=== PATIENT | male | born 1955 | race Caucasian/White ===

== ENCOUNTER 2018-04-12 21:30 | Emergency (ER) | payer OTHER ==
[2018-04-12 21:36] VITALS: BP 185/82; PULSE 98; RESP 18; TEMP 98
[2018-04-12] MEDS ORDERED: KETOROLAC 30 MG/ML 1 ML VIAL IM STA (22:23)
--- NOTE | 2018-04-12 22:31 | ED ---
Back Pain HPI - General Source: patient, RN notes reviewed Limitations: no limitations <Joanne Siddiqui - Last Filed: 04/12/18 22:55> <Swathi Sanford - Last Filed: 04/13/18 01:24> - General Chief Complaint: Back Pain/Injury Stated Complaint: back pain Time Seen by Provider: 04/12/18 21:50 - History of Present Illness Initial Comments: This is a 63-year-old male who presents to the emergency department with chief complaint of low back pain. Patient reports a history of herniated lumbar disc. He states that yesterday he was carrying a laundry basket and walking on the stairs. He states that he slipped on one of the steps but was able to catch himself without completely falling. Denies any direct trauma to the back. Patient states that since that time he has had right-sided back pain with radiation down the right leg. Patient is concerned for worsening of the herniated disc. He denies saddle paresthesias or loss of bladder or bowel function. Denies fevers or chills, chest pain or shortness breath, abdominal pain, nausea or vomiting. Denies any other injuries or trauma. (Joanne Siddiqui) - Related Data Home Medications Medication Instructions Recorded Confirmed Naproxen Sodium [Aleve] 220 mg PO DAILY PRN 12/20/14 04/12/18 Diclofenac Sodium [Voltaren Gel] 1 applic TOPICAL ONCE PRN 04/12/18 04/12/18 Previous Rx's Medication Instructions Recorded Hydrocodone/Acetaminophen [[place] 1 tab PO Q6HR PRN #15 tab 01/11/16 5-325] Ibuprofen 600 mg PO Q6HR #15 tablet 04/12/18 Allergies Allergy/AdvReac Type Severity Reaction Status Date / Time aspirin Allergy Itching Verified 04/12/18 21:55 Review of Systems ROS Other: All systems not noted in ROS Statement are negative. <Joanne Siddiqui - Last Filed: 04/12/18 22:55> ROS Other: All systems not noted in ROS Statement are negative. <Swathi Sanford - Last Filed: 04/13/18 01:24> ROS Statement: Those systems with pertinent positive or pertinent negative responses have been documented in the HPI. Past Medical History Past Medical History: Cancer Additional Past Medical History / Comment(s): back injury with nerve damage, bone cancer History of Any Multi-Drug Resistant Organisms: None Reported Past Surgical History: Hernia Repair, Tonsillectomy Additional Past Surgical History / Comment(s): amputation to finger Past Psychological History: No Psychological Hx Reported Smoking Status: Current every day smoker Past Alcohol Use History: None Reported Past Drug Use History: None Reported <Joanne Siddiqui - Last Filed: 04/12/18 22:55> General Exam Limitations: no limitations Back exam: Present: normal inspection, full ROM, paraspinal tenderness (Right lumbar). Absent: vertebral tenderness <Joanne Siddiqui - Last Filed: 04/12/18 22:55> <Swathi Sanford - Last Filed: 04/13/18 01:24> - General Exam Comments Initial Comments: General: Awake and alert, well-developed; in no apparent distress. HEENT: Head atraumatic, normocephalic. Pupils are equal, round and reactive to light. Extraocular movements intact. Oropharynx moist without erythema or exudate. Neck: Supple. Normal ROM. Cardiovascular: Regular rate and rhythm. No murmurs, rubs or gallops. Chest symmetrical. Pedal pulses are 2+ equal and palpable bilaterally. Respiratory: Lungs clear to auscultation bilaterally. No wheezes, rales or rhonchi. Normal respiratory effort with no use of accessory muscles. Musculoskeletal: Normal ROM, no tenderness bilateral upper and lower extremities. Ambulating normally. Skin: [place], warm and dry without rashes or lesions. Neurological: Alert and oriented x3. CN II-XII grossly intact. Speech is fluent and answers are appropriate. No focal neuro deficits. Psychiatric: Normal mood and affect. No overt signs of depression or anxiety noted. (Joanne Siddiqui) Vital Signs 04/12/18 21:34 Temperature 98 F Pulse Rate 98 Respiratory 18 Rate Blood Pressure 185/82 O2 Sat by Pulse 100 Oximetry Medical Decision Making <Joanne Siddiqui - Last Filed: 04/12/18 22:55> <Swathi Sanford - Last Filed: 04/13/18 01:24> - Medical Decision Making This is a 63-year-old male who presents to the emergency department with chief complaint of acute low back pain. Patient reports slipping on a set of stairs but was able to catch his fall. No direct trauma to the back. Patient reports pain to the right side of his back with radiation down the right leg. He states he has had similar symptoms in the past with a herniated disc. He is concern for worsening of this. Patient was given Toradol and will be started on a short course of anti-inflammatories. Recommended following up with his back doctor and/or primary care provider for further evaluation with an MRI. Lumbar x-ray is not warranted at this time as patient did not have any direct trauma to the back. Vital signs have been stable and he is in no acute distress. He will be discharged home at this time. He is in agreement voices understanding. All questions were answered. (Joanne Siddiqui) I was available for consultation in the emergency department. The history and physical exam were done by the midlevel provider. I was consulted for this patient's care. I reviewed the case with the midlevel provider and based on their presentation of the patient, I agree with the assessment, medical decision making and plan of care as documented. (Swathi Sanford) Disposition Is patient prescribed a controlled substance at d/c from ED?: No Time of Disposition: 22:31 <Joanne Siddiqui - Last Filed: 04/12/18 22:55> <Swathi Sanford - Last Filed: 04/13/18 01:24> Clinical Impression: Lumbar radiculopathy Disposition: HOME SELF-CARE Instructions: Acute Low Back Pain (ED), Lumbar Radiculopathy (ED) Additional Instructions: Please take medications as prescribed. Please follow up with primary care provider within 1-2 days. Return to emergency department if symptoms should worsen or any concerns arise. Prescriptions: Ibuprofen 600 mg PO Q6HR #15 tablet Referrals: Fabiola Greenwood MD [Primary Care Provider] - 1-2 days
== END 2018-04-12 23:16 | disposition home or self-care (01) ==
LOC: EC 21:30
DX: M54.16 Radiculopathy, lumbar region (principal); F17.200 Nicotine dependence, unspecified, uncomplicated; Z85.830 Personal history of malignant neoplasm of bone; Z98.890 Other specified postprocedural states; Z89.029 Acquired absence of unspecified finger(s); Z88.6 Allergy status to analgesic agent; W18.43XA Slipping, tripping and stumbling without falling due to stepping from one level to another, initial encounter; Y93.01 Activity, walking, marching and hiking
CPT/HCPCS: 99283; 96372; J1885

== ENCOUNTER 2018-07-04 16:52 | Emergency (ER) | payer OTHER ==
[2018-07-04 17:01] VITALS: RESP 16
--- NOTE | 2018-07-04 17:55 | XR ---
EXAMINATION TYPE: XR lumbar spine 2 or 3V DATE OF EXAM: 07/04/2018 COMPARISON: 12/20/2014 HISTORY: Back pain TECHNIQUE: 3 views FINDINGS: Lumbar vertebra have normal alignment. There is degenerative disc space narrowing at L4-5. There is spurring of the endplates throughout the lumbar spine. Abdominal aorta is atheromatous. Sacr oiliac joints are intact. IMPRESSION: Multilevel spondylosis. This is more at L4-5. No fracture seen. There is mild progression of spondylosis compared to old exam.
--- NOTE | 2018-07-04 17:56 | XR ---
EXAMINATION TYPE: XR knee complete LT DATE OF EXAM: 07/04/2018 COMPARISON: NONE HISTORY: Knee pain TECHNIQUE: 3 views FINDINGS: There is 8mm degenerative cyst in the medial femoral condyle. I see no fracture nor disloca tion. There is no sign of a joint effusion. Joint spaces are fairly normal. IMPRESSION: Small degenerative cyst in the medial femoral condyle. No significant joint space narrowi ng. No fracture.
--- NOTE | 2018-07-04 18:36 | US ---
EXAMINATION TYPE: US venous doppler duplex LE LT DATE OF EXAM: 07/04/2018 6:29 PM COMPARISON: NONE CLINICAL HISTORY: Pain. Pain SIDE PERFORMED: Left TECHNIQUE: The lower extremity deep venous system is examined utilizing real time linear array sonog brii with graded compression, doppler sonography and color-flow sonography. VESSELS IMAGED: External Iliac Vein (EIV) Common Femoral Vein Deep Femoral Vein Greater Saphenous Vein * Femoral Vein Popliteal Vein Small Saphenous Vein * Proximal Calf Veins (* superficial vessels) Left Leg: Negative for DVT No evidence DVT left leg. IMPRESSION: Normal left leg duplex venous sonogram.
--- NOTE | 2018-07-04 18:59 | ED ---
General Adult HPI - General Chief complaint: Extremity Injury, Lower Stated complaint: lt leg pain Time Seen by Provider: 07/04/18 17:14 Source: patient, RN notes reviewed Mode of arrival: ambulatory Limitations: no limitations - History of Present Illness Initial comments: Patient is a 63-year-old male presented to the emergency room today with a chief complaint of left leg pain over the last 4 days. Patient does admit that 4 days ago was going down some stairs when he slipped and did not fall but had to catch himself. Patient states that since that time he's been experiencing some discomfort in the left leg. He states that when he is at rest laying down he feels okay but when he gets up and starts to walk he feels tightness and squeezing sensation in the left leg. He states he feels in the left popliteal area along with some pain radiating down from the hip to the knee area. Patient admits to previous back injury when he had pain radiate down the right leg. States he does not have pain going down at the left leg in the past. Patient denies any bowel or bladder incontinence retention. Denies any saddle anesthesia. Denies any other complaints. Patient denies any recent fever, chills, shortness of breath, chest pain, back pain, abdominal pain, nausea or vomiting, numbness or tingling, dysuria or hematuria, constipation or diarrhea, headaches or visual changes, or any other complaints. - Related Data Home Medications Medication Instructions Recorded Confirmed Naproxen Sodium [Aleve] 220 mg PO DAILY PRN 12/20/14 04/12/18 Diclofenac Sodium [Voltaren Gel] 1 applic TOPICAL ONCE PRN 04/12/18 04/12/18 Previous Rx's Medication Instructions Recorded Hydrocodone/Acetaminophen [[place] 1 tab PO Q6HR PRN #15 tab 01/11/16 5-325] Ibuprofen 600 mg PO Q6HR #15 tablet 04/12/18 Cyclobenzaprine [Flexeril] 10 mg PO TID #20 tab 07/04/18 Dexamethasone 0.75 mg PO DIRECTED #12 tablet 07/04/18 Naproxen [Naprosyn] 500 mg PO BID #20 tablet 07/04/18 Allergies Allergy/AdvReac Type Severity Reaction Status Date / Time aspirin Allergy Itching Verified 07/04/18 17:01 Review of Systems ROS Statement: Those systems with pertinent positive or pertinent negative responses have been documented in the HPI. ROS Other: All systems not noted in ROS Statement are negative. Past Medical History Past Medical History: Cancer Additional Past Medical History / Comment(s): back injury with nerve damage, bone cancer History of Any Multi-Drug Resistant Organisms: None Reported Past Surgical History: Hernia Repair, Tonsillectomy Additional Past Surgical History / Comment(s): amputation to finger Past Psychological History: No Psychological Hx Reported Smoking Status: Current every day smoker Past Alcohol Use History: None Reported Past Drug Use History: None Reported General Exam - General Exam Comments Initial Comments: General: The patient is awake and alert, in no distress, and does not appear acutely ill. Neck: The neck is supple, there is no tenderness or JVD. Musculoskeletal: Normal ROM. Normal. Left leg no obvious deformity. Patient shows good range of motion of left ankle, knee, hip. Patient does have some tenderness in the lower lumbar at L3 to L5. No step-off no deformity.. Acutely tender on the left side of the lower lumbar. Mild tenderness to posterior aspect of the left knee. No bony tenderness to left hip, knee, ankle. Strength 5/5. Sensation intact. Pulses equal bilaterally 2+. Neurological: A&O x 3. CN II-XII intact, There are no obvious motor or sensory deficits. Coordination appears grossly intact. Speech is normal. Skin: Skin is warm and dry and no rashes or lesions are noted. Psychiatric: Cooperative, appropriate mood & affect, normal judgment. Limitations: no limitations Course Vital Signs 07/04/18 16:58 Temperature 97.8 F Pulse Rate 93 Respiratory 16 Rate Blood Pressure 150/83 O2 Sat by Pulse 100 Oximetry Medical Decision Making - Medical Decision Making X-rays of the left knee are negative for any acute abnormality. There is arthritic changes to the lumbar spine but no acute abnormality. Doppler ultrasound performed and is negative for any DVT. Results were discussed with the patient. This felt that his pain is radicular pain coming from his lower lumbar. Patient will be treated with anti-inflammatories, steroids, muscle relaxer. He is advised following up with orthopedics for further evaluation. Patient advised return if any symptoms increase or worsen. Disposition Clinical Impression: Acute lumbar radiculopathy Disposition: HOME SELF-CARE Condition: Good Instructions: Lumbar Radiculopathy (ED) Additional Instructions: Please use medication as discussed. Be aware that muscle relaxant may make you drowsy. Please follow-up with orthopedic/family doctor in the next 2 days of symptoms have not improved. Please return to emergency room if the symptoms increase or worsen or for any other concerns. Prescriptions: Cyclobenzaprine [Flexeril] 10 mg PO TID #20 tab Dexamethasone 0.75 mg PO DIRECTED #12 tablet Naproxen [Naprosyn] 500 mg PO BID #20 tablet Is patient prescribed a controlled substance at d/c from ED?: No Referrals: Fabiola Greenwood MD [Primary Care Provider] - 1-2 days Maricarmen Gottlieb DO [Doctor of Osteopathic Medicine] - 1-2 days Time of Disposition: 19:04
[2018-07-04] MEDS ORDERED: KETOROLAC 60 MG/2 ML VIAL IM STA (19:00)
[2018-07-04 19:14] VITALS: BP 129/57; PULSE 79; TEMP 98
== END 2018-07-04 19:17 | disposition home or self-care (01) ==
LOC: EC 16:52
DX: M54.16 Radiculopathy, lumbar region (principal); F17.200 Nicotine dependence, unspecified, uncomplicated; Z85.830 Personal history of malignant neoplasm of bone
CPT/HCPCS: 72100; 73562; 93971; 99284; 96372; J1885

== ENCOUNTER → 2018-08-04 | Outpatient (CLI) | payer OTHER ==
--- NOTE | 2018-08-06 00:21 | MR ---
EXAMINATION TYPE: MR lumbar spine wo con DATE OF EXAM: 08/04/2018 COMPARISON: None HISTORY: Disc degeneration / Herniated disc,/ left leg pain TECHNIQUE: Multiplanar, multisequence images of the lumbar spine were acquired. Lumbar vertebra have normal alignment. There is mild narrowing of the lumbar disc spaces with sparing of L5-S1 disc. There is no compression fracture. I see no focal bone destruction. There is mild mult ilevel lumbar hypertrophic facet arthropathy. There is no paraspinal mass. The visualized sacroiliac joints appear intact. There is mild lateral recess stenosis at L4-5 on the right side with facet arth ropathy. I see no significant bony spinal stenosis. There is small posterior T11-12 disc herniation o n the right side. There is no significant neural foraminal impingement. There are small posterior dis c bulges and herniation in the midline from L1 to L5. IMPRESSION: Multilevel mild spondylotic changes. Small multilevel posterior disc bulging. Right side posterior T1 1-12 disc herniation. No significant narrowing of the spinal canal. No fracture.
== END | disposition home or self-care (01) ==
LOC: RADMRIMAIN 11:12
PROVIDERS: ATTEND Family Medicine
DX: M51.16 Intervertebral disc disorders with radiculopathy, lumbar region (principal); M47.26 Other spondylosis with radiculopathy, lumbar region; Z88.8 Allergy status to other drugs, medicaments and biological substances
CPT/HCPCS: 72148

== ENCOUNTER → 2022-01-27 | Outpatient (CLI) | payer MEDICARE ==
--- NOTE | 2022-01-27 11:35 | US ---
EXAMINATION TYPE: US duplex aorta DATE OF EXAM: 01/27/2022 COMPARISON: NONE CLINICAL HISTORY: Z13.6 SCREENING FOR CARDIOVASCULAR DISORDER. Screening for AAA EXAM MEASUREMENTS: Abdominal Aorta: Proximal: 2.2 x 2.0 cm Mid: 1.3 x 1.4 cm Distal: 1.7 x 1.5 cm Bifurcation: ELENITA: 1.1 x 1.0 cm JEN: 0.9 x 0.9 cm No evidence of AAA IMPRESSION: No evidence for abdominal aortic aneurysm at this time.
== END | disposition home or self-care (01) ==
LOC: RADUSWWP 10:45
PROVIDERS: ATTEND Family Medicine
DX: Z13.6 Encounter for screening for cardiovascular disorders (principal)
CPT/HCPCS: 93979

== ENCOUNTER → 2022-02-22 | Outpatient (CLI) | payer MEDICARE ==
[2022-02-22 14:10] LABS: African American GFR (CKD) >90 (>60 ml/min/1.73 sqM); Blood Urea Nitrogen 11 mg/dL (9-20); Non-African American GFR(CKD) 78 (>60 ml/min/1.73 sqM)
--- NOTE | 2022-02-22 16:14 | CT ---
EXAMINATION TYPE: CT angio abd aorta w/Runoff DATE OF EXAM: 02/22/2022 COMPARISON: None HISTORY: 66-year-old male I73.9, Peripheral vascular disease TECHNIQUE: Contiguous axial scanning of the abdomen and pelvis performed without and with IV Contrast , patient injected with 125 ml mL of Isovue 370. Additional postcontrast scanning with bilateral lowe r extremity runoff. Coronal/sagittal reconstructions performed. 3-D reconstructions generated on a de dicated independent workstation. CT DLP: 1632.1 mGycm Automated exposure control for dose reduction was used. FINDINGS: Heart normal size without pericardial effusion. Lung bases clear without pleural effusion. There is a small to moderate-sized hiatal hernia Liver shows an oval lesion anteriorly along the mid aspect measuring 2.9 cm wide with peripheral nodu lar enhancement on arterial phase suggesting a benign hemangioma. Main portal vein and right and left branches are patent. No biliary ductal dilatation. Gallbladder, adrenal glands, kidneys, spleen with tiny anterior splenule, and pancreas within normal limits. No dilated small bowel, free fluid, or free air. No mesenteric or retroperitoneal lymphadenopathy. Normal appendix. Minimal scattered stool. There is sigmoid diverticulosis. No pericolonic inflammator y change. Mild to moderate circumferential bladder wall thickening. There is prostatomegaly at 4.6 cm wide. Paul e nodular soft tissue impressing onto the base of the bladder suggesting BPH. Correlate with patient' s symptoms an PSA values. No pelvic lymphadenopathy. There appears to be a large right-sided scrotal hydrocele and small to moderate on the left. BONES: Moderate to advanced degenerative disc disease at L4-L5. Hypertrophic facet arthropathy. Degenerative grade 1 retrolisthesis L1-L2. Advanced degenerative change left first MTP joint. VASCULATURE: Visceral artery branches are patent. There is only mild atherosclerotic calcification within the infr arenal abdominal aorta. Accessory left renal artery. Patent K[place]. No aneurysm. Mild atherosclerotic calcification bilateral common iliac arteries. Additional plaque right common il iac artery causing mild uniform narrowing. RIGHT: Atherosclerotic calcification causing mild narrowing right [employer]. There is severe diffuse stenosis of the SFA and loss of opacification in the mid thigh. Reconstitution of flow at the popliteal artery. Moderate segmental stenoses popliteal artery. Anterior tibial artery is patent. Tibial peroneal trunk is patent. Trifurcation vessels are diminutive. Peroneal artery faintly seen to the distal third leg. Two-vessel runoff into the foot. LEFT: Mild focal stenosis left common iliac bifurcation. Mild atherosclerotic calcification and narrowing [employer]. Diffusely diminutive and stenotic SFA. Loss of opacification at the mid thigh level. PFA is patent. Reconstitution of the popliteal artery with focal mild apical scarring calcifications. The anterior tibial artery is patent. Moderate focal stenosis proximal posterior tibial artery. The trifurcation vessels are diminutive. Pe roneal artery not seen beyond the distal third leg level. There is two-vessel runoff into the foot. IMPRESSION: 1. Severely stenotic bilateral SFA's from their origins with loss of opacification at the mid thigh l evels. Reconstitution at the popliteal artery. Patent profunda femoral arteries. 2. Trifurcation vessels are diminutive and the peroneal arteries are not seen beyond the distal third leg level. Faint two-vessel runoff on both sides. 3. Mild uniform narrowing along the length of the right common iliac artery. Mild focal stenosis left common iliac artery bifurcation. 4. Incidental: Sigmoid diverticulosis. Large right-sided scrotal hydrocele. Clinically correlate. Sma ll to moderate size hiatal hernia. Benign 2.9 cm hepatic hemangioma.
== END | disposition home or self-care (01) ==
LOC: RADCTMAIN 13:30
PROVIDERS: ATTEND Surgery
DX: I73.9 Peripheral vascular disease, unspecified (principal); N43.3 Hydrocele, unspecified; K57.30 Diverticulosis of large intestine without perforation or abscess without bleeding
CPT/HCPCS: 82565; 84520; 75635; 36415; Q9967